=== PATIENT | female | born 1950 | race African-American/Black ===

== ENCOUNTER 2017-02-12 07:21 | Emergency (ER) | payer MEDICARE, OTHER ==
[2017-02-12] MEDS ORDERED: EPINEPHrine 1 MG/10 ML Abboject SYRINGE ONE (12:00)
[2017-02-12] MEDS ORDERED: Calcium Chloride 1 GM/10 ML Abboject SYRINGE ONE (12:00)
== END 2017-02-12 08:08 | disposition expired ==
LOC: ERS 07:21
DX: I46.9 Cardiac arrest, cause unspecified (principal)
CPT/HCPCS: 92950; 96361; 96374; 96375; 96376; 99291; J2997; J0171